=== PATIENT | female | born 1995 | race Caucasian/White ===

== ENCOUNTER 2017-07-21 14:52 | Emergency (ER) | payer SELFPAY ==
[~2017-07-21] VITALS: Ht 162.6 cm; Wt 68.9 kg
[2017-07-21 15:24] VITALS: BP_SYST 111
--- NOTE | 2017-07-21 15:29 | NUR ---
Patient triaged and placed in waiting room. VSS and patient appears in no acute distress at this time. Accompanied by mother, awaiting available bed, and MD notified of need for MSE.
--- NOTE | 2017-07-21 16:29 | NUR ---
Patient to ER bed 07 to gown for evaluation. Side rails up.
[2017-07-21] MEDS ORDERED: KETOROLAC TROMETHAMINE 30 MG VIAL IM ONE (16:30)
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
--- NOTE | 2017-07-21 16:38 | NUR ---
ER ZAKI Lujan examining patient.
--- NOTE | 2017-07-21 16:48 | NUR ---
Medication administered. Pt tolerated well. No adverse reactions ntoed.
--- NOTE | 2017-07-21 16:55 | NUR ---
R knee wrapped with Elie wrap and knee immobilizer applied. Pt tolerated well. Skin pink dry and warm, cap refill <3.
[2017-07-21 17:02] VITALS: BP_SYST 116
--- NOTE | 2017-07-21 17:08 | NUR ---
Patient given written and verbal discharge instructions and verbalizes understanding. ER [employer]PECT[employer] Le discussed with patient the results and treatment provided. Patient in stable condition. ID arm band removed. Rx of [place], Motrin given. Patient educated on pain management and to follow up with PMD. Pain Scale 0. Opportunity for questions provided and answered. Medication side effect fact sheet provided.
== END 2017-07-21 17:02 | disposition home or self-care (01) ==
LOC: SED 14:52
DX: S83.91XA Sprain of unspecified site of right knee, initial encounter (principal); R03.0 Elevated blood-pressure reading, without diagnosis of hypertension; W50.0XXA Accidental hit or strike by another person, initial encounter; Y93.89 Activity, other specified; Y92.89 Other specified places as the place of occurrence of the external cause; Y99.8 Other external cause status
CPT/HCPCS: 73564; 81025; 96372; 99284; J1885